=== PATIENT | male | born 1990 | race Hispanic/Latino ===

== ENCOUNTER 2017-01-12 14:26 | Emergency (ER) | payer OTHER ==
[~2017-01-12] VITALS: Ht 185.4 cm; Wt 94.3 kg
[2017-01-12] MEDS ORDERED: AZITHROMYCIN 250 MG TAB PO ONE (15:30)
[2017-01-12] MEDS ORDERED: cefTRIAXone SOD 250 MG VIAL (J0696) IM ONE (15:30)
[2017-01-12 15:52] VITALS: BP 135/78
== END 2017-01-12 15:54 | disposition home or self-care (01) ==
LOC: M ED 15:48
DX: A56.01 Chlamydial cystitis and urethritis (principal)
CPT/HCPCS: 87491; 87591; 96372; 99282; J0696